=== PATIENT | female | born 1935 | race Two or more races ===

== ENCOUNTER 2020-03-25 16:17 | Emergency (ER) | payer MEDICARE, OTHER ==
[2020-03-25] MEDS ORDERED: Piperacillin/Tazobactam 4.5 GM in Sodium Chloride 0.9% 100 ML IV SCH (17:00)
[2020-03-25] MEDS ORDERED: Lactated Ringers 1,000 ML IV SCH (17:00)
[2020-03-25] MEDS ORDERED: Acetaminophen 325 MG Tab PO PRN (17:05)
--- NOTE | 2020-03-25 17:10 | EDM.PDOC ---
<OfficerJared - Last Filed: 03/25/20 17:07> ED HPI GENERAL MEDICAL PROBLEM - General Chief Complaint: Fever Stated Complaint: MEDICAL VIA [facility] Time Seen by Provider: 03/25/20 16:56 Source of Information: Reports: EMS, Old Records, RN Notes Reviewed History Limitations: Reports: Physical Impairment - History of Present Illness INITIAL COMMENTS - FREE TEXT/NARRATIVE: 85-year-old female presents emergency department today via EMS services from [facility] she has a history of dementia and is noncommunicative at this time per report from [facility] records there has been a change in mental status more combative more confused over the last 24 hours did develop fever was evaluated by the nurse practitioner basic blood work was done found to have CBC 14.6 with 74% neutrophils basic metabolic panel reveals a sodium 130 potassium 5.0 glucose 291 creatinine normal at 1.1 proBNP was 1207 - Related Data Allergies Allergy/AdvReac Type Severity Reaction Status Date / Time No Known Allergies Allergy Verified 03/25/20 16:19 Home Meds: Home Meds Aspirin [Low Dose Aspirin EC] 81 mg PO DAILY 03/25/20 [History] Calcium Carbonate/Vitamin D3 [Calcium 500-Vit D3 600 Caplet] 1 tab PO DAILY 03/25/20 [History] Clopidogrel [Plavix] 75 mg PO DAILY 03/25/20 [History] Escitalopram [Lexapro] 10 mg PO DAILY 03/25/20 [History] Furosemide [Lasix] 20 mg PO DAILY 03/25/20 [History] Glimepiride [Amaryl] 2 mg PO WITHBREAKFAST 03/25/20 [History] Latanoprost/Pf [Latanoprost 0.005% Eye Drop] 1 drop EYERT BEDTIME 03/25/20 [History] Losartan Potassium 25 mg PO DAILY 03/25/20 [History] Omeprazole Magnesium [Prilosec Otc] 40 mg PO DAILY 03/25/20 [History] Timolol [Betimol] 1 drop EYEBOTH BID 03/25/20 [History] amLODIPine Besylate [Norvasc] 10 mg PO DAILY 03/25/20 [History] atorvaSTATin Calcium [Lipitor] 20 mg PO BEDTIME 03/25/20 [History] busPIRone [Buspar] 5 mg PO BID 03/25/20 [History] busPIRone [Buspar] 10 mg PO BEDTIME 03/25/20 [History] cephALEXin [Keflex] 500 mg PO BID #14 capsule 03/25/20 [Rx] metFORMIN [Glucophage] 1,000 mg PO BIDMEALS 03/25/20 [History] Past Medical History HEENT History: Reports: Cataract, Glaucoma Cardiovascular History: Reports: Heart Failure, High Cholesterol, Hypertension, PVD Neurological History: Reports: Alzheimers Disease Psychiatric History: Reports: Alzheimers Disease, Depression Social & Family History - Tobacco Use Smoking Status *Q: Never Smoker ED ROS GENERAL - Review of Systems Review Of Systems: Unable To Obtain Reason Not Obtained: Dementia noncommunicative ED EXAM, SEPSIS - Physical Exam Exam: See Below Exam Limited By: Physical Impairment General Appearance: Lethargic, Mild Distress (Hypoxic) Neck: Normal Inspection, Supple, Non-Tender, Full Range of Motion Respiratory/Chest: No Respiratory Distress, Lungs Clear, Normal Breath Sounds, No Accessory Muscle Use, Chest Non-Tender Cardiovascular: No Murmur, Tachycardia GI/Abdominal Exam: Soft, Non-Tender Departure - Departure Disposition: Home, Self-Care 01 Clinical Impression: UTI (urinary tract infection) - Discharge Information Prescriptions: cephALEXin [Keflex] 500 mg PO BID #14 capsule Instructions: Urinary Tract Infection, Adult, [id number] Referrals: PCP,None [Ordering Only Provider] - Forms: ED Department Discharge Additional Instructions: 1. Continue routine cares. 2. Keflex 500 mg by mouth twice daily for 7 days. 3. Routine primary care follow-up in 5 to 10 days. 4. Seek emergent medical attention with any rapidly worsening symptoms or concerns. Sepsis Event Note (ED) - Evaluation Sepsis Screening Result: Possible Severe Sepsis Risk <Joseph Clayton - Last Filed: 03/25/20 20:21> Course - Vital Signs Last Recorded V/S: Last Vital Signs Temp 100.7 F H 03/25/20 19:55 Pulse 120 H 03/25/20 19:55 Resp 16 03/25/20 19:55 BP 189/78 H 03/25/20 19:55 Pulse Ox 94 L 03/25/20 19:55 - Orders/Labs/Meds Orders: Active Orders 24 hr Category Date Time Status EKG Documentation Completion [RC] ASDIRECTED Care 03/25/20 17:09 Active Vital Signs [RC] Q1H Care 03/25/20 16:59 Active Chest 1V Frontal [CR] Routine Exams 03/25/20 16:56 Taken CULTURE BLOOD [BC] Urgent Lab 03/25/20 17:15 Received CULTURE BLOOD [BC] Urgent Lab 03/25/20 17:30 Received CULTURE URINE [RM] Stat Lab 03/25/20 20:20 Received Acetaminophen [TylenoL] Med 03/25/20 17:05 Active 650 mg PO Q4H PRN Lactated Ringers [Ringers, Lactated] 1,000 ml Med 03/25/20 17:00 Active IV ASDIRECTED Piperacillin/Tazobactam [Zosyn] 4.5 gm Med 03/25/20 17:00 Active Sodium Chloride 0.9% [Normal Saline] 100 ml IV Q6H Vancomycin 1 gm Med 03/25/20 17:00 Active Sodium Chloride 0.9% [Normal Saline] 250 ml IV Q12H Blood Culture x2 Reflex Set [OM.PC] Urgent Oth 03/25/20 16:59 Ordered Isolation [COMM] Routine Oth 03/25/20 17:06 Ordered Isolation [COMM] Stat Oth 03/25/20 17:05 Ordered EKG 12 Lead [EK] Stat Ther 03/25/20 17:09 Ordered Medication Orders Acetaminophen (Tylenol) 650 mg PO Q4H PRN PRN Reason: Fever Greater Than 101 Last Admin: 03/25/20 17:46 Dose: 650 mg Documented by: ROCKY Lactated Ringer's (Ringers, Lactated) 1,000 mls @ 999 mls/hr IV ASDIRECTED [facility] Last Admin: 03/25/20 17:37 Dose: 999 mls/hr Documented by: ROCKY Vancomycin HCl 1 gm/ Sodium (Chloride) 250 mls @ 150 mls/hr IV Q12H [facility] Last Admin: 03/25/20 18:41 Dose: 150 mls/hr Documented by: ROCKY Piperacillin Sod/Tazobactam (Sod 4.5 gm/ Sodium Chloride) 100 mls @ 100 mls/hr IV Q6H [facility] Last Admin: 03/25/20 17:39 Dose: 100 mls/hr Documented by: ROCKY Labs: Laboratory Tests 03/25/20 03/25/20 03/25/20 Range/Units 16:56 16:59 16:59 WBC 11.9 H (4.5-11.0) K/uL RBC 4.61 (3.30-5.50) M/uL Hgb 11.1 L D (12.0-15.0) g/dL Hct 35.1 L (36.0-48.0) % MCV 76 L (80-98) fL MCH 24 L (27-31) pg MCHC 32 (32-36) % Plt Count 345 (150-400) K/uL Neut % (Auto) 81 H (36-66) % Lymph % (Auto) 15 L (24-44) % Mathews % (Auto) 4 (2-6) % Eos % (Auto) 0 L (2-4) % Baso % (Auto) 0 (0-1) % Puncture Site Lt.radial ABG pH 7.421 (7.350-7.450) ABG pCO2 39.7 (35.0-42.0) mmHg ABG pO2 90.7 (75.0-100.0) mmHg ABG HCO3 25.3 (22.0-26.0) mmol/L ABG Total CO2 23.1 (21.0-25.0) mmol/L ABG O2 Saturation 96.2 (95.0-98.0) % ABG O2 Content 14.7 L (15.0-23.0) %vol ABG Base Excess 1.4 mm/L ABG Hemoglobin 11.0 L (12.0-16.0) g/dL ABG Oxyhemoglobin 94.1 % ABG Carboxyhemoglobin 1.1 (0.0-1.6) % ABG Methemoglobin 1.1 % Da Test Passed O2 Delivery Device Nasal cannula Oxygen Flow Rate 2.0 L Sodium 133 L (140-148) mmol/L Potassium 4.4 (3.6-5.2) mmol/L Chloride 97 L (100-108) mmol/L Carbon Dioxide 24 (21-32) mmol/L Anion Gap 16.4 H (5.0-14.0) mmol/L BUN 24 H (7-18) mg/dL Creatinine 1.0 (0.6-1.0) mg/dL Est Cr Clr Drug Dosing 34.02 mL/min Estimated GFR (MDRD) 53 L (>60) Glucose 276 H (74-106) mg/dL Lactic Acid (0.4-2.0) mmol/L Calcium 8.9 (8.5-10.1) mg/dL Total Bilirubin 0.4 (0.2-1.0) mg/dL AST 23 (15-37) U/L ALT 15 (12-78) U/L Alkaline Phosphatase 116 (46-116) U/L C-Reactive Protein 0.31 H (0.0-0.3) mg/dL Total Protein 7.3 (6.4-8.2) g/dL Albumin 3.3 L (3.4-5.0) g/dL Globulin 4.0 H (2.3-3.5) g/dL Albumin/Globulin Ratio 0.8 L (1.2-2.2) Procalcitonin ng/mL Urine Color (YELLOW) Urine Appearance (CLEAR) Urine pH (5.0-8.0) Ur Specific [place] (1.008-1.030) Urine Protein (NEGATIVE) mg/dL Urine Glucose (UA) (NEGATIVE) mg/dL Urine Ketones (NEGATIVE) mg/dL Urine Occult Blood (NEGATIVE) Urine Nitrite (NEGATIVE) Urine Bilirubin (NEGATIVE) Urine Urobilinogen (0.2-1.0) EU/dL Ur Leukocyte Esterase (NEGATIVE) Urine RBC (0-5) Urine WBC (0-5) Ur Epithelial Cells Amorphous Sediment Urine Bacteria Urine Mucus SARS-CoV-2 RNA (LISA) (NEGATIVE) 03/25/20 03/25/20 03/25/20 Range/Units 16:59 16:59 18:33 WBC (4.5-11.0) K/uL RBC (3.30-5.50) M/uL Hgb (12.0-15.0) g/dL Hct (36.0-48.0) % MCV (80-98) fL MCH (27-31) pg MCHC (32-36) % Plt Count (150-400) K/uL Neut % (Auto) (36-66) % Lymph % (Auto) (24-44) % Mathews % (Auto) (2-6) % Eos % (Auto) (2-4) % Baso % (Auto) (0-1) % Puncture Site ABG pH (7.350-7.450) ABG pCO2 (35.0-42.0) mmHg ABG pO2 (75.0-100.0) mmHg ABG HCO3 (22.0-26.0) mmol/L ABG Total CO2 (21.0-25.0) mmol/L ABG O2 Saturation (95.0-98.0) % ABG O2 Content (15.0-23.0) %vol ABG Base Excess mm/L ABG Hemoglobin (12.0-16.0) g/dL ABG Oxyhemoglobin % ABG Carboxyhemoglobin (0.0-1.6) % ABG Methemoglobin % Da Test O2 Delivery Device Oxygen Flow Rate L Sodium (140-148) mmol/L Potassium (3.6-5.2) mmol/L Chloride (100-108) mmol/L Carbon Dioxide (21-32) mmol/L Anion Gap (5.0-14.0) mmol/L BUN (7-18) mg/dL Creatinine (0.6-1.0) mg/dL Est Cr Clr Drug Dosing mL/min Estimated GFR (MDRD) (>60) Glucose (74-106) mg/dL Lactic Acid 1.3 (0.4-2.0) mmol/L Calcium (8.5-10.1) mg/dL Total Bilirubin (0.2-1.0) mg/dL AST (15-37) U/L ALT (12-78) U/L Alkaline Phosphatase (46-116) U/L C-Reactive Protein (0.0-0.3) mg/dL Total Protein (6.4-8.2) g/dL Albumin (3.4-5.0) g/dL Globulin (2.3-3.5) g/dL Albumin/Globulin Ratio (1.2-2.2) Procalcitonin < 0.05 ng/mL Urine Color (YELLOW) Urine Appearance (CLEAR) Urine pH (5.0-8.0) Ur Specific [place] (1.008-1.030) Urine Protein (NEGATIVE) mg/dL Urine Glucose (UA) (NEGATIVE) mg/dL Urine Ketones (NEGATIVE) mg/dL Urine Occult Blood (NEGATIVE) Urine Nitrite (NEGATIVE) Urine Bilirubin (NEGATIVE) Urine Urobilinogen (0.2-1.0) EU/dL Ur Leukocyte Esterase (NEGATIVE) Urine RBC (0-5) Urine WBC (0-5) Ur Epithelial Cells Amorphous Sediment Urine Bacteria Urine Mucus SARS-CoV-2 RNA (LISA) Negative (NEGATIVE) 03/25/20 Range/Units 18:47 WBC (4.5-11.0) K/uL RBC (3.30-5.50) M/uL Hgb (12.0-15.0) g/dL Hct (36.0-48.0) % MCV (80-98) fL MCH (27-31) pg MCHC (32-36) % Plt Count (150-400) K/uL Neut % (Auto) (36-66) % Lymph % (Auto) (24-44) % Mathews % (Auto) (2-6) % Eos % (Auto) (2-4) % Baso % (Auto) (0-1) % Puncture Site ABG pH (7.350-7.450) ABG pCO2 (35.0-42.0) mmHg ABG pO2 (75.0-100.0) mmHg ABG HCO3 (22.0-26.0) mmol/L ABG Total CO2 (21.0-25.0) mmol/L ABG O2 Saturation (95.0-98.0) % ABG O2 Content (15.0-23.0) %vol ABG Base Excess mm/L ABG Hemoglobin (12.0-16.0) g/dL ABG Oxyhemoglobin % ABG Carboxyhemoglobin (0.0-1.6) % ABG Methemoglobin % Da Test O2 Delivery Device Oxygen Flow Rate L Sodium (140-148) mmol/L Potassium (3.6-5.2) mmol/L Chloride (100-108) mmol/L Carbon Dioxide (21-32) mmol/L Anion Gap (5.0-14.0) mmol/L BUN (7-18) mg/dL Creatinine (0.6-1.0) mg/dL Est Cr Clr Drug Dosing mL/min Estimated GFR (MDRD) (>60) Glucose (74-106) mg/dL Lactic Acid (0.4-2.0) mmol/L Calcium (8.5-10.1) mg/dL Total Bilirubin (0.2-1.0) mg/dL AST (15-37) U/L ALT (12-78) U/L Alkaline Phosphatase (46-116) U/L C-Reactive Protein (0.0-0.3) mg/dL Total Protein (6.4-8.2) g/dL Albumin (3.4-5.0) g/dL Globulin (2.3-3.5) g/dL Albumin/Globulin Ratio (1.2-2.2) Procalcitonin ng/mL Urine Color Yellow (YELLOW) Urine Appearance Clear (CLEAR) Urine pH 6.5 (5.0-8.0) Ur Specific [place] 1.025 (1.008-1.030) Urine Protein >=300 H (NEGATIVE) mg/dL Urine Glucose (UA) 250 H (NEGATIVE) mg/dL Urine Ketones Trace H (NEGATIVE) mg/dL Urine Occult Blood Small H (NEGATIVE) Urine Nitrite Negative (NEGATIVE) Urine Bilirubin Negative (NEGATIVE) Urine Urobilinogen 0.2 (0.2-1.0) EU/dL Ur Leukocyte Esterase Trace H (NEGATIVE) Urine RBC 10-20 H (0-5) Urine WBC 30-40 H (0-5) Ur Epithelial Cells Moderate Amorphous Sediment Not seen Urine Bacteria Many Urine Mucus Not seen SARS-CoV-2 RNA (LISA) (NEGATIVE) Meds: Medications Generic Name Dose Route Start Last Admin Trade Name Freq PRN Reason Stop Dose Admin Acetaminophen 650 mg 03/25/20 17:05 03/25/20 17:46 Tylenol PO 650 mg Q4H PRN Administration Fever Greater Than 101 Lactated Ringer's 1,000 mls @ 999 mls/hr 03/25/20 17:00 03/25/20 17:37 Ringers, Lactated IV 999 mls/hr ASDIRECTED [facility] Administration Vancomycin HCl 1 gm/ Sodium 250 mls @ 150 mls/hr 03/25/20 17:00 03/25/20 18:41 Chloride IV 150 mls/hr Q12H [facility] Administration Piperacillin Sod/Tazobactam 100 mls @ 100 mls/hr 03/25/20 17:00 03/25/20 17:39 Sod 4.5 gm/ Sodium Chloride IV 100 mls/hr Q6H [facility] Administration Discontinued Medications Generic Name Dose Route Start Last Admin Trade Name Freq PRN Reason Stop Dose Admin Acetaminophen Confirm 03/25/20 17:43 Tylenol Administered 03/25/20 17:44 Dose 650 mg .ROUTE .STK-MED ONE Lactated Ringer's 1,000 mls @ 500 mls/hr 03/25/20 18:14 03/25/20 18:41 Ringers, Lactated IV 03/25/20 20:13 500 mls/hr BOLUS ONE Administration Sodium Chloride Confirm 03/25/20 17:32 Normal Saline Administered 03/25/20 17:33 Dose 250 mls @ as directed .ROUTE .STK-MED ONE Sodium Chloride Confirm 03/25/20 17:33 Normal Saline Administered 03/25/20 17:34 Dose 100 mls @ as directed .ROUTE .STK-MED ONE Piperacillin Sod/Tazobactam Sod Confirm 03/25/20 17:33 Zosyn Administered 03/25/20 17:34 Dose 4.5 gm .ROUTE .STK-MED ONE Vancomycin HCl Confirm 03/25/20 17:32 Vancomycin Administered 03/25/20 17:33 Dose 1 gm .ROUTE .STK-MED ONE - Re-Assessments/Exams Free Text/Narrative Re-Assessment/Exam: 03/25/20 20:17 Patient signed out to me at 7 PM by day physician pending work-up for fever. Patient with history of Alzheimer's dementia from memory care unit with fever. History limited due to dementia. Current work-up reviewed. No evidence of pneumonia. No evidence of severe sepsis or septic shock. Follow-up on urinalysis demonstrates evidence to suggest urinary tract infection. Broad- spectrum antibiotics were administered during this ED visit. Will change to oral Keflex 500 mg twice daily which administered in the outpatient setting starting tomorrow. Urine culture has been obtained and is pending. Coronavirus testing was obtained and has been reviewed and is negative. No indication for hospitalization at this time. Patient will return to nursing facility for further outpatient management. Departure - Departure Time of Disposition: 20:20 Condition: Good Sepsis Event Note (ED) - Focused Exam Vital Signs: Vital Signs Temp Temp Pulse Resp BP Pulse Ox 03/25/20 19:55 100.7 F H 120 H 16 189/78 H 94 L 03/25/20 18:00 119 H 20 192/84 H 94 L 03/25/20 17:46 101.8 F H 123 H 21 H 174/88 H 98 03/25/20 17:09 83 22 H 108/79 03/25/20 16:31 101.8 F H 126 H 14 175/89 H 92 L - My Orders Last 24 Hours: My Active Orders 03/25/20 20:20 CULTURE URINE [RM] Stat - Assessment/Plan Last 24 Hours: My Active Orders 03/25/20 20:20 CULTURE URINE [] Stat
[2020-03-25] MEDS ORDERED: Sodium Chloride 0.9% 250 ML ONE (17:32)
[2020-03-25] MEDS ORDERED: Vancomycin 1 GM SDV ONE (17:32)
[2020-03-25] MEDS ORDERED: Piperacillin/Tazobactam 4.5 GM Vial ONE (17:33)
[2020-03-25] MEDS ORDERED: Sodium Chloride 0.9% 100 ML ONE (17:33)
[2020-03-25] MEDS ORDERED: Acetaminophen 325 MG Tab ONE (17:43)
[2020-03-25] MEDS ORDERED: Lactated Ringers 1,000 ML IV ONE (18:14)
--- NOTE | 2020-03-26 10:05 | CR ---
CHEST: Portable 03/25/2020 at 5:23 PM CLINICAL HISTORY:Fever COMPARISON:None FINDINGS: Heart size is borderline enlarged. Pulmonary vascular is normal. There is a small right pleural effusion versus pleural thickening. There is some streaky density in the right lower lung field. Some of this may be chronic but a small infiltrate is not excluded. There is generalized interstitial prominence which is likely chronic. There are atherosclerotic changes in the aorta.. Impression: Borderline cardiac megaly Chronic interstitial changes Small right effusion versus pleural thickening Patchy right lower lobe density may represent some scarring and atelectasis. Infiltrate is not excluded
== END 2020-03-25 21:30 | disposition home or self-care (01) ==
LOC: JP.ED 16:17
DX: N39.0 Urinary tract infection, site not specified (principal); I11.0 Hypertensive heart disease with heart failure; I50.9 Heart failure, unspecified; E78.00 Pure hypercholesterolemia, unspecified; G30.9 Alzheimer's disease, unspecified; F32.9 Major depressive disorder, single episode, unspecified; Z79.82 Long term (current) use of aspirin; Z79.899 Other long term (current) drug therapy; Z20.828 Contact with and (suspected) exposure to other viral communicable diseases
CPT/HCPCS: 36415; 36600; 71045; 80053; 81001; 82803; 83605; 84145; 85025; 86140; 87040; 87086; 87804; 93005; 93010; 96361; 96365; 96367; 99283; 99285; A9270; J2543; J3370; J7050; J7120; U0002

== ENCOUNTER 2020-09-14 12:27 | Emergency (ER) | payer MEDICARE ==
--- NOTE | 2020-09-14 14:41 | EDM.PDOC ---
<Lauri Laird - Last Filed: 09/14/20 22:30> ED HPI GENERAL MEDICAL PROBLEM - General Chief Complaint: Respiratory Problem Stated Complaint: TROUBLE BREATHING, WEAK Time Seen by Provider: 09/14/20 14:41 - Related Data Allergies Allergy/AdvReac Type Severity Reaction Status Date / Time No Known Allergies Allergy Verified 09/14/20 14:18 Home Meds: Home Meds Aspirin [Low Dose Aspirin EC] 81 mg PO DAILY 03/25/20 [History] Calcium Carbonate/Vitamin D3 [Calcium 500-Vit D3 600 Caplet] 1 tab PO DAILY 03/25/20 [History] Clopidogrel [Plavix] 75 mg PO DAILY 03/25/20 [History] Escitalopram [Lexapro] 10 mg PO DAILY 03/25/20 [History] Furosemide [Lasix] 60 mg PO DAILY 03/25/20 [History] Glimepiride [Amaryl] 2 mg PO WITHBREAKFAST 03/25/20 [History] Latanoprost/Pf [Latanoprost 0.005% Eye Drop] 1 drop EYERT BEDTIME 03/25/20 [History] Losartan Potassium 25 mg PO DAILY 03/25/20 [History] Omeprazole Magnesium [Prilosec Otc] 40 mg PO DAILY 03/25/20 [History] Timolol [Betimol] 1 drop EYEBOTH BID 03/25/20 [History] amLODIPine Besylate [Norvasc] 10 mg PO DAILY 03/25/20 [History] atorvaSTATin Calcium [Lipitor] 20 mg PO BEDTIME 03/25/20 [History] busPIRone [Buspar] 5 mg PO BID 03/25/20 [History] busPIRone [Buspar] 10 mg PO BEDTIME 03/25/20 [History] metFORMIN [Glucophage] 1,000 mg PO BIDMEALS 03/25/20 [History] Ferrous Sulfate 325 mg PO WITHBREAKFAST 09/14/20 [History] Loperamide [Imodium] 2 mg PO Q12HR PRN 09/14/20 [History] Magnesium Oxide [Magnesium] 400 mg PO DAILY 09/14/20 [History] Course - Re-Assessments/Exams Free Text/Narrative Re-Assessment/Exam: 09/14/20 20:14 Care turned over from Dr. Lindo pending a CT scan. Results are below IMPRESSION: No pulmonary embolism or pneumonia. Moderate right and small left pleural effusions. Compressive atelectasis in the right lower lobe. Coronary artery disease. Colonic diverticulosis. These were discussed with the patient, family, and Dr. Hodges. She had 800 cc out from the Lasix but I do not think that can make significant difference with this chronic and worsening pleural effusion. Dr. Hodges is going to set up a thoracentesis tomorrow. She can use supplemental oxygen until that time. Departure - Departure Time of Disposition: 21:15 Disposition: DC/Tfer to [facility] Clinical Impression: Pleural effusion, right, Hypoxia, Shortness of breath - Discharge Information Instructions: Pleural Effusion Referrals: Delfin Fernandez MD [Primary Care Provider] - Forms: ED Department Discharge Care Plan Goals: Use oxygen supplementation tonight, continue your regular medications and Dr. Hodges is going to contact [facility] tomorrow to set up a thoracentesis procedure to remove the fluid from your lung. <Corinne Lindo - Last Filed: 09/15/20 08:53> ED HPI GENERAL MEDICAL PROBLEM - General Source of Information: Reports: Patient History Limitations: Reports: No Limitations - History of Present Illness INITIAL COMMENTS - FREE TEXT/NARRATIVE: PT IS A RESIDENT OF [facility]. AND HAS A HISTORY OF BEING INCREASED SOB. tHIS STARTED 3 WEEKS AGO. sHE IS NOW REQUIRING O2 AT 2 LITERS OR HER SATS DROP INTO THE LOW 80S. sHE IS VERY PUFFY AND NOW IS EVEN SWOLLEN IN HER HANDS. Onset: Gradual Duration: Day(s): Location: Reports: Chest, Generalized Associated Symptoms: Reports: Cough, Shortness of Breath, Weakness Past Medical History HEENT History: Reports: Cataract, Glaucoma Cardiovascular History: Reports: Heart Failure, High Cholesterol, Hypertension, PVD Neurological History: Reports: Alzheimers Disease Psychiatric History: Reports: Alzheimers Disease, Depression Social & Family History - Tobacco Use Tobacco Use Status *Q: Never Tobacco User - Caffeine Use Caffeine Use: Reports: Coffee - Recreational Drug Use Recreational Drug Use: No ED ROS GENERAL - Review of Systems Review Of Systems: See Below Constitutional: Reports: Weakness HEENT: Reports: No Symptoms Respiratory: Reports: Shortness of Breath, Cough, Other (pt is puffy and has been much more sob. . She is now using o2 to maintain her sats. She has not reponded to her increase in lasix. ) Cardiovascular: Reports: Dyspnea on Exertion Endocrine: Reports: No Symptoms GI/Abdominal: Reports: No Symptoms : Reports: No Symptoms Musculoskeletal: Reports: No Symptoms Skin: Reports: No Symptoms Neurological: Reports: No Symptoms Psychiatric: Reports: Anxiety ED EXAM, GENERAL - Physical Exam Exam: See Below Free Text/Narrative:: pt has had increased sob. She has a lower hg at 9 and this is somewhat unexplained. She has been eating fair. She has had increased sob particularly with activity. The daughter believes she looks quite puffy. Pt is anemic and this is somewhat unexplained. Exam Limited By: No Limitations General Appearance: Alert, Mild Distress, Other (pt is very pale in appearance. ) Ears: Normal TMs Nose: Normal Inspection Throat/Mouth: Normal Inspection Head: Atraumatic Neck: Normal Inspection Respiratory/Chest: Decreased Breath Sounds, Rales, Other (pt has poor breath sounds on the rt. Pt had a chest xray which did reveal a increased pleual effusion on the rt. She did have a angio of her chest and she did not have a PE and there did not appear to be a mass in the chest. ) Cardiovascular: Regular Rate, Rhythm GI/Abdominal: Soft, Non-Tender (Female) Exam: Deferred Rectal (Female) Exam: Deferred Back Exam: Normal Inspection Extremities: Other (pt has plus one pitting edema. ) Neurological: Alert, Oriented, Normal Cognition Psychiatric: Flat Affect Skin Exam: Other (pt is very pale and is anemic will obtain a workup for the anemia. ) Course - Vital Signs Last Recorded V/S: Last Vital Signs Temp 36.8 C 09/14/20 20:45 Pulse 77 09/14/20 20:45 Resp 16 09/14/20 20:45 BP 164/64 H 09/14/20 20:45 Pulse Ox 96 09/14/20 20:45 - Orders/Labs/Meds Orders: Active Orders 24 hr Category Date Time Status CULTURE URINE [RM] Stat Lab 09/14/20 15:47 Results CULTURE URINE [RM] Stat Lab 09/14/20 17:32 Results Labs: Laboratory Tests 09/14/20 09/14/20 09/14/20 Range/Units 14:48 14:56 14:56 WBC 9.9 (4.5-11.0) K/uL RBC 4.29 (3.30-5.50) M/uL Hgb 9.0 L D (12.0-15.0) g/dL Hct 29.8 L (36.0-48.0) % MCV 70 L (80-98) fL MCH 21 L (27-31) pg MCHC 30 L (32-36) % Plt Count 392 (150-400) K/uL Neut % (Auto) 64 (36-66) % Lymph % (Auto) 22 L (24-44) % Pine % (Auto) 12 H (2-6) % Eos % (Auto) 2 (2-4) % Baso % (Auto) 0 (0-1) % D-Dimer, Quantitative (0.0-500.0) ng/mL Sodium 127 L (140-148) mmol/L Potassium 4.5 (3.6-5.2) mmol/L Chloride 90 L (100-108) mmol/L Carbon Dioxide 28 (21-32) mmol/L Anion Gap 13.5 (5.0-14.0) mmol/L BUN 21 H (7-18) mg/dL Creatinine 0.9 (0.6-1.0) mg/dL Est Cr Clr Drug Dosing 32.83 mL/min Estimated GFR (MDRD) 60 (>60) Glucose 121 H (74-106) mg/dL Calcium 8.5 (8.5-10.1) mg/dL Total Bilirubin 0.3 (0.2-1.0) mg/dL AST 19 (15-37) U/L ALT 17 (12-78) U/L Alkaline Phosphatase 119 H (46-116) U/L NT-Pro-B Natriuret Pep (5-450) pg/mL Total Protein 6.4 (6.4-8.2) g/dL Albumin 3.0 L (3.4-5.0) g/dL Globulin 3.4 (2.3-3.5) g/dL Albumin/Globulin Ratio 0.9 L (1.2-2.2) Urine Color Yellow (YELLOW) Urine Appearance Slightly cloudy A (CLEAR) Urine pH 6.0 (5.0-8.0) Ur Specific Raysal 1.015 (1.008-1.030) Urine Protein 30 H (NEGATIVE) mg/dL Urine Glucose (UA) Negative (NEGATIVE) mg/dL Urine Ketones Negative (NEGATIVE) mg/dL Urine Occult Blood Negative (NEGATIVE) Urine Nitrite Negative (NEGATIVE) Urine Bilirubin Negative (NEGATIVE) Urine Urobilinogen 0.2 (0.2-1.0) EU/dL Ur Leukocyte Esterase Small H (NEGATIVE) Urine RBC 0-5 (0-5) Urine WBC 5-10 H (0-5) Ur Epithelial Cells Many Amorphous Sediment Not seen Urine Bacteria Many Urine Mucus Few 09/14/20 09/14/20 Range/Units 14:56 17:38 WBC (4.5-11.0) K/uL RBC (3.30-5.50) M/uL Hgb (12.0-15.0) g/dL Hct (36.0-48.0) % MCV (80-98) fL MCH (27-31) pg MCHC (32-36) % Plt Count (150-400) K/uL Neut % (Auto) (36-66) % Lymph % (Auto) (24-44) % Pine % (Auto) (2-6) % Eos % (Auto) (2-4) % Baso % (Auto) (0-1) % D-Dimer, Quantitative 1167.71 H (0.0-500.0) ng/mL Sodium (140-148) mmol/L Potassium (3.6-5.2) mmol/L Chloride (100-108) mmol/L Carbon Dioxide (21-32) mmol/L Anion Gap (5.0-14.0) mmol/L BUN (7-18) mg/dL Creatinine (0.6-1.0) mg/dL Est Cr Clr Drug Dosing mL/min Estimated GFR (MDRD) (>60) Glucose (74-106) mg/dL Calcium (8.5-10.1) mg/dL Total Bilirubin (0.2-1.0) mg/dL AST (15-37) U/L ALT (12-78) U/L Alkaline Phosphatase (46-116) U/L NT-Pro-B Natriuret Pep 2483 H (5-450) pg/mL Total Protein (6.4-8.2) g/dL Albumin (3.4-5.0) g/dL Globulin (2.3-3.5) g/dL Albumin/Globulin Ratio (1.2-2.2) Urine Color (YELLOW) Urine Appearance (CLEAR) Urine pH (5.0-8.0) Ur Specific Raysal (1.008-1.030) Urine Protein (NEGATIVE) mg/dL Urine Glucose (UA) (NEGATIVE) mg/dL Urine Ketones (NEGATIVE) mg/dL Urine Occult Blood (NEGATIVE) Urine Nitrite (NEGATIVE) Urine Bilirubin (NEGATIVE) Urine Urobilinogen (0.2-1.0) EU/dL Ur Leukocyte Esterase (NEGATIVE) Urine RBC (0-5) Urine WBC (0-5) Ur Epithelial Cells Amorphous Sediment Urine Bacteria Urine Mucus Meds: Medications Discontinued Medications Generic Name Dose Route Start Last Admin Trade Name Freq PRN Reason Stop Dose Admin Furosemide 60 mg 09/14/20 15:45 09/14/20 15:58 Lasix IVPUSH 09/14/20 15:46 60 mg ONETIME ONE Administration Sodium Chloride 100 mls @ 3 mls/sec 09/14/20 18:45 09/14/20 19:11 Normal Saline IV 3 mls/sec ASDIRECTED CISCO Administration Iopamidol 100 ml 09/14/20 18:45 09/14/20 19:11 Isovue-370 (76%) IV 100 ml . DIRECTED CISCO Administration Sodium Chloride 10 ml 09/14/20 18:35 09/14/20 18:46 Saline Flush FLUSH 09/14/20 18:36 10 ml ONETIME ONE Administration Sepsis Event Note (ED) - Evaluation Sepsis Screening Result: No Definite Risk - My Orders Last 24 Hours: My Active Orders 09/14/20 15:47 CULTURE URINE [RM] Stat 09/14/20 17:32 CULTURE URINE [RM] Stat - Assessment/Plan Last 24 Hours: My Active Orders 09/14/20 15:47 CULTURE URINE [RM] Stat 09/14/20 17:32 CULTURE URINE [RM] Stat
--- NOTE | 2020-09-14 15:27 | CR ---
CHEST: Portable 09/14/2020 at 3:12 PM CLINICAL HISTORY:SOB COMPARISON:2019 FINDINGS: There is a moderate increasing right pleural effusion. Heart and pulmonary vascularity are normal. There is some airspace disease in the right lower lobe most which appears to be compressive atelectasis. There is some increase in the left lower lobe lung markings when compared to prior study. Superimposed infiltrate is not excluded. IMPRESSION: INCREASING MODERATE RIGHT PLEURAL EFFUSION RIGHT LOWER LOBE AIRSPACE DISEASE MAY REPRESENT SOME COMPRESSIVE ATELECTASIS. INCREASED LEFT LUNG MARKINGS SUGGEST SUPERIMPOSED INFILTRATE.
[2020-09-14] MEDS ORDERED: Furosemide 40 MG/4 ML VIAL IVPUSH ONE (15:45)
[2020-09-14] MEDS ORDERED: Sodium Chloride 0.9% 10 ML Syringe FLUSH ONE (18:35)
[2020-09-14] MEDS ORDERED: Iopamidol 755 Mg/ML 100 ML Bottle IV SCH (18:45)
[2020-09-14] MEDS ORDERED: Sodium Chloride 0.9% 100 ML IV SCH (18:45)
--- NOTE | 2020-09-14 19:58 | CRLCT ---
INDICATION: Shortness of breath TECHNIQUE: CT chest pulmonary PE protocol acquired with 100 cc Isovue 370 IV contrast. COMPARISON: Chest radiograph from same date FINDINGS: Cardiovascular structures: Normal vascular enhancement of the pulmonary arteries, no sign of pulmonary embolism. Heart size is normal. No sign of aneurysm in the thoracic aorta. Mediastinum and duke: No mass. There is some shotty mediastinal lymph nodes. Calcified bilateral hilar lymph nodes. Mitral annular calcifications. Coronary artery calcifications. Lungs: Compressive atelectasis in the right lower lobe. Pleura and pericardium: Moderate right and small left pleural effusions. Chest wall and axilla: No mass or adenopathy. Upper abdomen: Status post cholecystectomy. Colonic diverticulosis. Moderate atherosclerotic disease. Bones: No significant findings. IMPRESSION: No pulmonary embolism or pneumonia. Moderate right and small left pleural effusions. Compressive atelectasis in the right lower lobe. Coronary artery disease. Colonic diverticulosis. Please note that all CT scans at this facility use dose modulation, iterative reconstruction, and/or weight-based dosing when appropriate to reduce radiation dose to as low as reasonably achievable. Dictated by Millie Romeo MD @ Sep 14 2020 7:56PM Signed by Dr. Millie Romeo @ Sep 14 2020 7:56PM
== END 2020-09-14 21:10 ==
LOC: JP.ED 12:27
DX: J90 Pleural effusion, not elsewhere classified (principal); R09.02 Hypoxemia; I11.0 Hypertensive heart disease with heart failure; I50.9 Heart failure, unspecified; E78.00 Pure hypercholesterolemia, unspecified; G30.9 Alzheimer's disease, unspecified; F02.80 Dementia in other diseases classified elsewhere, unspecified severity, without behavioral disturbance, psychotic disturbance, mood disturbance, and anxiety; Z79.82 Long term (current) use of aspirin; Z79.02 Long term (current) use of antithrombotics/antiplatelets; Z79.84 Long term (current) use of oral hypoglycemic drugs; Z79.899 Other long term (current) drug therapy
CPT/HCPCS: 36415; 71045; 71275; 80053; 81001; 83880; 85025; 85379; 87086; 96374; 99285; J1940; Q9967; 99284

== ENCOUNTER 2022-05-28 18:18 | Emergency (ER) | payer MEDICARE ==
[2022-05-28] MEDS ORDERED: Sodium Chloride 0.9% 10 ML Syringe FLUSH PRN (19:02)
[2022-05-28] MEDS ORDERED: fentaNYL 100 MCG/2 ML SDV IVPUSH ONE ×2 (19:02→20:11)
[2022-05-28] MEDS ORDERED: fentaNYL 50 MCG/ML SDV IVPUSH ONE (22:40)
== END 2022-05-28 23:15 ==
LOC: JP.ED 18:18
DX: S72.21XA Displaced subtrochanteric fracture of right femur, initial encounter for closed fracture (principal); I11.0 Hypertensive heart disease with heart failure; I50.9 Heart failure, unspecified; Z79.899 Other long term (current) drug therapy; Z79.84 Long term (current) use of oral hypoglycemic drugs; Z90.49 Acquired absence of other specified parts of digestive tract; Z90.710 Acquired absence of both cervix and uterus; Z20.822 Contact with and (suspected) exposure to COVID-19; W19.XXXA Unspecified fall, initial encounter
CPT/HCPCS: 36415; 73502; 73700; 80048; 85025; 96374; 96376; 99285; J3010; J3490; U0002